=== PATIENT | male | born 1965 | race African-American/Black ===

== ENCOUNTER 2018-12-21 15:37 | Emergency (ER) | payer MEDICARE ==
[~2018-12-21] VITALS: Ht 188 cm; Wt 100.0 kg
[2018-12-21 18:59] VITALS: BP 125/80
== END 2018-12-21 19:23 | disposition home or self-care (01) ==
LOC: ER 15:37
DX: G51.0 Bell's palsy (principal); F99 Mental disorder, not otherwise specified; F12.10 Cannabis abuse, uncomplicated; Z88.2 Allergy status to sulfonamides; Z88.0 Allergy status to penicillin
CPT/HCPCS: 99283